=== PATIENT | male | born 1985 | race Caucasian/White ===

== ENCOUNTER 2017-10-14 18:16 | Emergency (ER) | payer OTHER ==
[2017-10-14 18:34] VITALS: BP 117/80
--- NOTE | 2017-10-14 19:03 | UC ---
Mary Ann Duval Jade, scribed for Gómez Lockhart MD on 10/14/17 at 1837 . Dental HPI - HPI Summary HPI Summary: Pt is a 32 y/o male who presents to [facility] c/o dental pain. He states the pain started 1 month ago and is worsening. He has left-sided dental pain that radiates to his left lymph nodes, left anabaptist, and forehead. Pain is rated a 9/ 10 in severity and is described as throbbing. Pt says it is hard to sleep and eat. He states it is hard to open his mouth and now its starting to eat away at [my] gums. Pt denies any fevers. PMHx dental problems from not brushing his teeth as a child. Pt is a smoker. He states that Ibuprofen and brushing his teeth mildly relieve the pain. Hydrogen peroxide does not help with the pain. - History of Current Complaint Chief Complaint: UCDentalProblem Stated Complaint: DENTAL COMPLAINT Time Seen by Provider: 10/14/17 18:33 Hx Obtained From: Patient Onset/Duration: Gradual Onset, Lasting Weeks - 1 month, Still Present Severity: Severe Pain Intensity: 9 Pain Scale Used: 0-10 Numeric Aggravating Factor(s): Other - Touch Alleviating Factor(s): Other (see comments) - Brushing teeth temporarily helps, Ibuprofen - Allergies/Home Medications Allergies/Adverse Reactions: Allergies Allergy/AdvReac Type Severity Reaction Status Date / Time No Known Allergies Allergy Verified 10/14/17 18:33 Home Medications: Home Medications Ibuprofen 400 mg PO 10/14/17 [History] PMH/Surg Hx/FS Hx/Imm Hx - Additional Past Medical History Additional PMH: Dental issues Endocrine History: Other - NEGATIVE: diabetes Other Endocrine History: . Psychological History: Other - NEGATIVE: Depression Other Psychological History: . Other History Of: Negative For: HIV, Hepatitis B, Hepatitis C - Surgical History Surgical History: None - Family History Known Family History: Negative: Cardiac Disease, Hypertension - Social History Alcohol Use: Occasionally Substance Use Type: Marijuana Substance Use Comment - Amount & Last Used: daily Smoking Status (MU): Current Some Day Smoker Type: Cigarettes, Cigars Amount Used/How Often: pt is now vaping Length of Time of Smoking/Using Tobacco: He started at 11 years old and stopped at 27 years old. Review of Systems Constitutional: Negative - Fever ENT: Dental Pain - Left side radiating to left side of face All Other Systems Reviewed And Are Negative: Yes Physical Exam - Summary Physical Exam Summary: General: well-appearing, no pain distress Skin: warm, color reflects adequate perfusion, dry Head: normal Eyes: EOMI, DARCY ENT: Poor dentition. Teeth tender to palpation on left side. Neck: supple, nontender Respiratory: CTA, breath sounds present Cardiovascular: RRR Abdomen: soft, nontender Bowel: present Musculoskeletal: normal, strength/ROM intact Neurological: sensory/motor intact, A&O x3 Psychological: affect/mood appropriate Triage Information Reviewed: Yes Vital Signs: Initial Vital Signs Temp 98.9 F 10/14/17 18:28 Pulse 101 10/14/17 18:28 Resp 18 10/14/17 18:28 BP 117/80 10/14/17 18:28 Pulse Ox 100 10/14/17 18:28 Vital Signs Reviewed: Yes Dental Complaint Course/Dx - Differential Dx/Diagnosis Provider Diagnoses: DENTAL INFECTION Discharge - Sign-Out/Discharge Documenting (check all that apply): Discharge/Admit/Transfer - Discharge - Discharge Plan Condition: Stable Disposition: HOME Prescriptions: Amoxicillin PO (*) [Amoxicillin 500 MG CAP*] 500 mg PO TID #30 cap Ibuprofen TAB* [Motrin TAB* 600 MG] 600 mg PO Q6H PRN #30 tab PRN Reason: Pain Patient Education Materials: Toothache (ED) Referrals: [facility] [Outside] Additional Instructions: FOLLOW UP WITH YOUR DENTIST. GET RECHECKED FOR ANY WORSENING OF YOUR CONDITION OR QUESTIONS OR CONCERNS. - Billing Disposition and Condition Condition: STABLE Disposition: Home The documentation as recorded by the Mary Ann johnston Jade accurately reflects the service I personally performed and the decisions made by me, Gómez Lockhart MD.
== END 2017-10-14 18:45 | disposition home or self-care (01) ==
LOC: UCEAST 18:16
DX: K04.7 Periapical abscess without sinus (principal); F17.210 Nicotine dependence, cigarettes, uncomplicated
CPT/HCPCS: 99212; G0463